=== PATIENT | male | born 1945 | race Caucasian/White ===

== ENCOUNTER → 2020-09-22 09:15 | Outpatient (CLI) | payer OTHER, SELFPAY ==
--- NOTE | 2020-09-22 | DI.MRI.S_ITS ---
PROCEDURE: MR HEAD/BRAIN WO CON INDICATIONS: Unsteadiness on feet TECHNIQUE: Non-contrast axial T1 spin echo, axial T2 fast spin echo, sagittal and axial FLAIR, coronal T2 fast spin echo, axial gradient echo, axial diffusion and ADC through the brain. COMPARISON: None. FINDINGS: Image quality: Excellent. CSF spaces: Ventricles appear symmetric in size and shape. Basal cisterns are patent. No extra-axial fluid collections. Brain: No intracranial bleeds or mass effects. There is cerebral volume loss for age. There are periventricular and deep white matter chronic small vessel ischemic changes. Brainstem appears normal. Diffusion-weighted images show no acute ischemic insults. No chronic ischemic insults. Punctate foci of susceptibility artifact noted in the cerebral hemispheres bilaterally and the right cerebellar hemisphere. Normal intravascular flow voids are present. Skull and face: Calvarial bone marrow is normal in signal. Orbits are normal. Sinuses: Sinuses and mastoids are clear. IMPRESSION: 1. No acute intracranial disease process. 2. No abnormal intracranial mass or mass effect. Nely a 3. No areas of acute or chronic infarction. 3. Punctate foci of susceptibility artifact involving the cerebral hemispheres bilaterally in the right cerebellar hemisphere. Finding typically represents remote petechial hemorrhage related to either amyloid angiopathy or hypertension, however finding is nonspecific and other etiologies underlying vascular malformation or less likely neoplastic process could produce a similar appearance. Dictated by: Amy Olmos MD, PhD on 09/22/2020 at 11:35 Approved by: Amy Olmos MD, PhD on 09/22/2020 at 11:40
== END ==
PROVIDERS: PCP Physician Assistant Medical; Referring Provider Psychiatry & Neurology Neurology; Visit Provider Psychiatry & Neurology Neurology
DX: R26.81 Unsteadiness on feet (principal); R29.6 Repeated falls
CPT/HCPCS: 70551

== ENCOUNTER → 2021-09-15 08:06 | Outpatient (CLI) | payer OTHER, SELFPAY ==
[2021-09-15 18:46] LABS: Hemoglobin 12.3 g/dL (13.5-17.5); Mean Corpuscular HGB Conc 35.2 % (30-36); Mean Corpuscular Hemoglobin 35.4 PG (26-34); Mean Corpuscular Volume 100.6 fL (80-100); Platelet Count 168 X10^3/uL (150-400); Red Blood Cell Count 3.48 X10^6/uL (4.5-5.9); White Blood Cell Count 6.5 X10^3/uL (4.5-11.0)
[2021-09-15 19:02] LABS: BUN Creatinine Ratio 25.8 (6-22); Blood Urea Nitrogen 23 mg/dL (9-20); Calcium 9.2 mg/dL (8.4-10.2); Carbon Dioxide 31 mmol/L (22-32); Chloride 102 mmol/L (98-107); Estimated Glomerular Filt Rate > 60 mL/min (>60); Glucose 97 mg/dL (80-110); HEMOLYSIS < 15 (0-50); Potassium 4.6 mmol/L (3.4-5.1); Sodium 137 mmol/L (137-145)
[2021-09-15 19:09] LABS: NT-proBNP (BNP-Adult 18+) 2530 pg/mL (<450)
[2021-09-15 19:13] LABS: Neutrophils Absolute Manual 3640 /uL (3000-5900); Total Cells Counted 100
[2021-09-15 19:14] LABS: Acanthocytes 1+; Anisocytosis 1+; Macrocytosis 1+; Poikilocytosis 3+; Schistocytes 2+; Tear Drop Cells 1+
[2021-09-15 19:22] LABS: Erythrocyte Sedimentation Rate 9 MM/HR (0-15)
== END ==
PROVIDERS: PCP Family Medicine; Visit Provider Family Medicine
DX: D64.9 Anemia, unspecified (principal); D69.6 Thrombocytopenia, unspecified; I48.0 Paroxysmal atrial fibrillation; I50.42 Chronic combined systolic (congestive) and diastolic (congestive) heart failure; R05.3 Chronic cough; Z86.79 Personal history of other diseases of the circulatory system; Z95.2 Presence of prosthetic heart valve
CPT/HCPCS: 80048; 83880; 85025; 85651

== ENCOUNTER → 2022-08-30 09:35 | Outpatient (CLI) | payer MEDICARE, SELFPAY ==
[2022-08-30 20:34] LABS: Alanine Aminotransferase 28 IU/L (<50); Albumin 4.5 g/dL (3.5-5.0); Albumin Globulin Ratio 1.3 (1.0-2.8); Alkaline Phosphatase 106 U/L (38-126); Aspartate Aminotransferase 75 IU/L (17-59); BUN Creatinine Ratio 24.5 (6-22); Bilirubin Total 1.5 mg/dL (0.2-1.3); Blood Urea Nitrogen 23 mg/dL (9-20); Calcium 9.3 mg/dL (8.4-10.2); Carbon Dioxide 29 mmol/L (22-32); Chloride 104 mmol/L (98-107); Cholesterol 161 mg/dL (140-199); Estimated Glomerular Filt Rate > 60 mL/min (>60); Globulin 3.4 g/dL (1.7-4.1); Glucose 95 mg/dL (80-110); HDL Cholesterol 82 mg/dL (40-60); HEMOLYSIS 19 (0-50); LDL Cholesterol Calculated 62 mg/dL (<100); Potassium 4.8 mmol/L (3.4-5.1); Sodium 138 mmol/L (137-145); Total Protein 7.9 g/dL (6.3-8.2); Triglycerides 87 mg/dL (35-150)
[2022-08-30 20:36] LABS: Basophils Absolute Auto 100 /uL (0-100); Basophils Percent Auto 1.1 % (0-2); Eosinophils Absolute Auto 200 /uL (0-450); Eosinophils Percent Auto 2.7 % (2-4); Hematocrit 36.1 % (41-53); Hemoglobin 12.2 g/dL (13.5-17.5); Lymphocytes Absolute Auto 1600 /uL (1100-4500); Lymphocytes Percent Auto 23.3 % (25-40); Mean Corpuscular HGB Conc 33.9 % (30-36); Mean Corpuscular Hemoglobin 33.9 PG (26-34); Monocytes Absolute Auto 1200 /uL (0-900); Monocytes Percent Auto 16.8 % (3-14); Neutrophils Absolute Auto 3900 /uL (1500-7000); Neutrophils Percent Auto 56.1 % (50-75); Platelet Count 185 X10^3/uL (150-400); Red Blood Cell Count 3.61 X10^6/uL (4.5-5.9); Red Cell Distribution Width 16.5 % (11.6-14.8); White Blood Cell Count 6.9 X10^3/uL (4.5-11.0)
[2022-08-30 20:37] LABS: Add Manual Diff / Slide Review SLIDE REVIEW
[2022-08-30 20:40] LABS: NT-proBNP (BNP-Adult 18+) 2380 pg/mL (<450)
[2022-08-30 20:47] LABS: Schistocytes 2+
[2022-08-30 20:48] LABS: Acanthocytes 1+; Macrocytosis 1+; Poikilocytosis 1+
== END ==
PROVIDERS: PCP Family Medicine; Visit Provider Family Medicine
DX: D50.9 Iron deficiency anemia, unspecified (principal); D69.6 Thrombocytopenia, unspecified; D64.9 Anemia, unspecified; E03.9 Hypothyroidism, unspecified; E61.1 Iron deficiency; E78.2 Mixed hyperlipidemia; I25.10 Atherosclerotic heart disease of native coronary artery without angina pectoris; I10 Essential (primary) hypertension; F11.90 Opioid use, unspecified, uncomplicated; I48.0 Paroxysmal atrial fibrillation; I50.42 Chronic combined systolic (congestive) and diastolic (congestive) heart failure; I63.519 Cerebral infarction due to unspecified occlusion or stenosis of unspecified middle cerebral artery; Z87.19 Personal history of other diseases of the digestive system
CPT/HCPCS: 80053; 80061; 83880; 84443; 85025

== ENCOUNTER → 2022-10-23 10:56 | Outpatient (CLI) | payer MEDICARE, OTHER, SELFPAY ==
[2022-10-23 20:02] LABS: Reticulocyte Count, Percent 2.4 % (0.9-2.6)
[2022-10-23 20:04] LABS: Basophils Absolute Auto 0 /uL (0-100); Basophils Percent Auto 0.3 % (0-2); Eosinophils Absolute Auto 100 /uL (0-450); Eosinophils Percent Auto 2.1 % (2-4); Hematocrit 38.7 % (41-53); Hemoglobin 13.4 g/dL (13.5-17.5); Lymphocytes Absolute Auto 1300 /uL (1100-4500); Lymphocytes Percent Auto 21.3 % (25-40); Mean Corpuscular HGB Conc 34.7 % (30-36); Mean Corpuscular Hemoglobin 34.4 PG (26-34); Mean Corpuscular Volume 99.1 fL (80-100); Monocytes Absolute Auto 1100 /uL (0-900); Monocytes Percent Auto 18.8 % (3-14); Neutrophils Absolute Auto 3400 /uL (1500-7000); Neutrophils Percent Auto 57.5 % (50-75); Platelet Count 177 X10^3/uL (150-400); Red Cell Distribution Width 16.8 % (11.6-14.8)
[2022-10-23 20:05] LABS: Add Manual Diff / Slide Review SLIDE REVIEW
[2022-10-23 20:08] LABS: HEMOLYSIS < 15 (0-50); Iron 137 ug/dL (49-181)
[2022-10-23 20:11] LABS: Alanine Aminotransferase 29 IU/L (<50); Albumin 4.7 g/dL (3.5-5.0); Albumin Globulin Ratio 1.6 (1.0-2.8); Alkaline Phosphatase 155 U/L (38-126); Aspartate Aminotransferase 47 IU/L (17-59); BUN Creatinine Ratio 26.9 (6-22); Bilirubin Total 1.2 mg/dL (0.2-1.3); Bilirubin Unconjugated 0.9 mg/dL (0.0-1.1); Blood Urea Nitrogen 25 mg/dL (9-20); Calcium 9.4 mg/dL (8.4-10.2); Carbon Dioxide 30 mmol/L (22-32); Chloride 101 mmol/L (98-107); Estimated Glomerular Filt Rate > 60 mL/min (>60); Globulin 2.9 g/dL (1.7-4.1); Glucose 63 mg/dL (80-110); HEMOLYSIS < 15 (0-50); Potassium 4.7 mmol/L (3.4-5.1); Sodium 137 mmol/L (137-145); Total Protein 7.6 g/dL (6.3-8.2)
[2022-10-23 20:14] LABS: NT-proBNP (BNP-Adult 18+) 3370 pg/mL (<450)
[2022-10-23 20:22] LABS: Percent Iron Saturation 36 % (20-50); Total Iron Binding Capacity 382 ug/dL (261-462); Transferrin 287 mg/dL (206-381)
[2022-10-23 20:24] LABS: Erythrocyte Sedimentation Rate 5 MM/HR (0-15)
[2022-10-23 20:52] LABS: Hepatitis B Surface Antigen NEGATIVE s/c (NEGATIVE)
[2022-10-23 20:53] LABS: Anisocytosis 2+; Poikilocytosis 1+; Schistocytes 1+
[2022-10-23 20:54] LABS: Vitamin B12 950 pg/mL (239-931)
[2022-10-23 21:17] LABS: Hep C Virus Ab w/Reflex Quant NEGATIVE s/c (NEGATIVE)
[2022-10-23 21:18] LABS: HIV 1 & 2 Ab/Ag 4th Gen Combo NEGATIVE (NEGATIVE)
[2022-10-29 14:09] LABS: Percent Free Testosterone 3.02 % (1.50-4.20); Testosterone Total 258.4 ng/dL (264.0-916.0)
== END ==
PROVIDERS: PCP Family Medicine; Visit Provider Family Medicine
DX: M54.50 Low back pain, unspecified (principal); I50.42 Chronic combined systolic (congestive) and diastolic (congestive) heart failure; D50.9 Iron deficiency anemia, unspecified; D64.9 Anemia, unspecified; I10 Essential (primary) hypertension; I25.10 Atherosclerotic heart disease of native coronary artery without angina pectoris; I63.519 Cerebral infarction due to unspecified occlusion or stenosis of unspecified middle cerebral artery; R74.8 Abnormal levels of other serum enzymes; E29.1 Testicular hypofunction; E78.2 Mixed hyperlipidemia; F11.90 Opioid use, unspecified, uncomplicated; G89.29 Other chronic pain; I48.0 Paroxysmal atrial fibrillation; Z79.890 Hormone replacement therapy
CPT/HCPCS: 80053; 80076; 82607; 83540; 83550; 83880; 84402; 84403; 85025; 85045; 85651; 86803; 87340; 87389

== ENCOUNTER → 2022-11-03 09:19 | Outpatient (CLI) | payer MEDICARE, OTHER, SELFPAY ==
--- NOTE | 2022-11-03 09:22 | DI.ECHO.S_ITS ---
[place] +---------+ [facility] +---------+ : : [address] [place] : : : : [id number] : : : : Phone: [phone] +---------+ Echocardiogram Report + + :Name: MELODIE GOOD Study Date: 11/03/2022 Height: 72 in : :[facility] ReadingLocation: Weight: 224 lb : : Gender: Male BSA: 2.2 m2 : :: 1945 Age: 77 yrs BP: 118/68 mmHg: :Reason For Study: Congestive Heart Failure : :Ordering Physician: ARNOLDO, : :DENNIS Performed By: Ruthy Waldron : :Referring: DENNIS MCLAUGHLIN : + + Interpretation Summary The ejection fraction is estimated to be 30-35%. There is severe global hypokinesis of the left ventricle. Right ventricular systolic function is at the lower limits of normal. The right ventricular systolic pressure is estimated to be at least 29 mmHg based on an estimated right atrial pressure of 3 mm Hg. The left atrium is mildly dilated. The right atrium is moderately dilated. There is moderate aortic stenosis. There is moderate aortic regurgitation. No prior studies available for comparison. Procedure: A two-dimensional transthoracic echocardiogram with color flow and Doppler was performed. The study quality was technically difficult. There is no prior echocardiogram noted for this patient. A contrast injection of Definity was performed to improve assessment of LV function. The patient has a paced rhythm. Left Ventricle: The left ventricle is moderately dilated. The ejection fraction is estimated to be 30-35%. There is severe global hypokinesis of the left ventricle. Diastolic function could not be accurately assessed due to paced rhythm. Right Ventricle: The right ventricle is mildly dilated. Right ventricular systolic function is at the lower limits of normal. Atria: The left atrium is mildly dilated. The right atrium is moderately dilated. There is no Doppler evidence for an interatrial shunt. Mitral Valve: The mitral valve leaflets are mildly calcified. There is mild to moderate mitral annular calcification. There is mild mitral stenosis. The mitral valve mean gradient is 3 mmHg. There is mild mitral regurgitation. Aortic Valve: There is a mechanical aortic valve. The peak aortic velocity is 3.39 m/sec. The aortic valve mean gradient is 27 mmHg. There is moderate aortic stenosis. There is moderate aortic regurgitation. Tricuspid Valve: The tricuspid valve is normal. There is no tricuspid stenosis. There is trace tricuspid regurgitation. The right ventricular systolic pressure is estimated to be at least 29 mmHg based on an estimated right atrial pressure of 3 mm Hg. Pulmonic Valve: The pulmonic valve leaflets are thin and pliable; valve motion is normal. There is no pulmonic valvular stenosis. There is no pulmonic valvular regurgitation. Great Vessels: The aortic root is not well visualized. The ascending aorta is normal in size. The pulmonary artery is normal size. The IVC is of normal diameter and collapses greater than 50% with a sniff. This suggests a low right atrial pressure of 3 mm Hg. Pericardium/ Pleura There is no pericardial effusion. There is no pleural effusion. MMode/2D Measurements & Calculations LVIDd: 6.2 cm LVOT diam: 2.4 cm LVIDs: 5.7 cm asc Aorta Diam: 2.8 cm FS: 8.1 % EPSS: 2.9 cm IVSd: 0.90 cm LVPWd: 1.3 cm LV ruvalcaba. diameter/BSA (cm/m^2): 2.8 LV sys. diameter/BSA (cm/m^2): 2.5 LA A2 area: 26.1 cm2 RA long axis: 6.6 cm LA A4 area: 26.3 cm2 RA area: 25.3 cm2 LA length (vol): 7.5 cm RA vol: 82.0 ml LA vol: 77.8 ml RA : 36.7 ml/m2 LA vol index: 34.8 ml/m2 RVD1 (basal): 4.4 cm LVLs ap4: 9.3 cm LVLd ap2: 9.7 cm TAPSE_phl: 1.6 cm LVLs ap2: 9.3 cm Doppler Measurements & Calculations Ao V2 max: 333.8 cm/sec LVOT Max Juan Miguel: 107.8 cm/sec Ao V2 mean: 236.4 cm/sec LV V1 max P.7 mmHg Ao max P.0 mmHg LV V1 VTI: 26.6 cm Ao mean P.8 mmHg FRANCISCO(I,D): 1.5 cm2 Ao V2 VTI: 78.4 cm FRANCISCO(V,D): 1.5 cm2 sev ratio: 0.34 FRANICSCO indexed to BSA (cm^2/m^2): 0.69 MV E max juan miguel: 110.0 cm/sec TR max juan miguel: 254.0 cm/sec MV A max juan miguel: 83.7 cm/sec TR max P.8 mmHg MV E/A: 1.3 PA V2 max: 80.4 cm/sec MV dec time: 0.23 sec PA V2 mean: 57.6 cm/sec MVA(VTI): 2.8 cm2 PA mean P.0 mmHg PA pr(Accel): 17.3 mmHg MV V2 mean: 78.9 cm/sec SV(LVOT): 120.2 ml MV mean P.0 mmHg MV V2 VTI: 43.7 cm AV VR_phl: 0.32 FRANCISCO(VTI)/BSA_phl: 0.68 Reading Physician:MCKAY
== END ==
PROVIDERS: PCP Family Medicine; Referring Provider Family Medicine; Visit Provider Family Medicine
DX: I08.0 Rheumatic disorders of both mitral and aortic valves (principal); I77.819 Aortic ectasia, unspecified site; I50.42 Chronic combined systolic (congestive) and diastolic (congestive) heart failure; I25.10 Atherosclerotic heart disease of native coronary artery without angina pectoris; I48.0 Paroxysmal atrial fibrillation
CPT/HCPCS: C8929; Q9957

== ENCOUNTER → 2022-11-29 11:06 | Outpatient (CLI) | payer MEDICARE, OTHER, SELFPAY ==
[2022-11-29 20:30] LABS: BUN Creatinine Ratio 25.5 (6-22); Blood Urea Nitrogen 25 mg/dL (9-20); Calcium 9.6 mg/dL (8.4-10.2); Carbon Dioxide 30 mmol/L (22-32); Chloride 99 mmol/L (98-107); Estimated Glomerular Filt Rate > 60 mL/min (>60); Glucose 81 mg/dL (80-110); HEMOLYSIS < 15 (0-50); Magnesium 2.2 mg/dL (1.6-2.3); Potassium 4.6 mmol/L (3.4-5.1); Sodium 137 mmol/L (137-145)
[2022-11-29 20:38] LABS: NT-proBNP (BNP-Adult 18+) 3630 pg/mL (<450)
== END ==
PROVIDERS: PCP Family Medicine; Visit Provider Specialist
DX: I50.42 Chronic combined systolic (congestive) and diastolic (congestive) heart failure (principal)
CPT/HCPCS: 80048; 83735; 83880

== ENCOUNTER → 2023-01-08 11:27 | Outpatient (CLI) | payer MEDICARE, OTHER, SELFPAY ==
[2023-01-08 19:45] LABS: Blood Urea Nitrogen 27 mg/dL (9-20); Calcium 9.6 mg/dL (8.4-10.2); Carbon Dioxide 30 mmol/L (22-32); Chloride 103 mmol/L (98-107); Estimated Glomerular Filt Rate > 60 mL/min (>60); Glucose 97 mg/dL (80-110); HEMOLYSIS < 15 (0-50); Magnesium 2.1 mg/dL (1.6-2.3); Potassium 4.5 mmol/L (3.4-5.1); Sodium 138 mmol/L (137-145)
== END ==
PROVIDERS: PCP Family Medicine; Visit Provider Specialist
DX: I50.42 Chronic combined systolic (congestive) and diastolic (congestive) heart failure (principal)
CPT/HCPCS: 80048; 83735

== ENCOUNTER → 2023-04-25 09:12 | Outpatient (CLI) | payer MEDICARE, OTHER, SELFPAY ==
[2023-04-25 19:32] LABS: Blood Urea Nitrogen 24 mg/dL (9-20); Calcium 9.2 mg/dL (8.4-10.2); Carbon Dioxide 28 mmol/L (22-32); Chloride 102 mmol/L (98-107); Cholesterol 170 mg/dL (140-199); Estimated Glomerular Filt Rate > 60 mL/min (>60); Glucose 101 mg/dL (80-110); HDL Cholesterol 85 mg/dL (40-60); HEMOLYSIS < 15 (0-50); LDL Cholesterol Calculated 70 mg/dL (<100); Potassium 4.5 mmol/L (3.4-5.1); Sodium 139 mmol/L (137-145); Triglycerides 76 mg/dL (35-150)
[2023-04-25 19:42] LABS: Add Manual Diff / Slide Review NO; Basophils Absolute Auto 100 /uL (0-100); Eosinophils Absolute Auto 200 /uL (0-450); Eosinophils Percent Auto 3.2 % (2-4); Hematocrit 34.8 % (41-53); Hemoglobin 12.2 g/dL (13.5-17.5); Lymphocytes Absolute Auto 1300 /uL (1100-4500); Lymphocytes Percent Auto 25.9 % (25-40); Mean Corpuscular Hemoglobin 35.1 PG (26-34); Mean Corpuscular Volume 100.2 fL (80-100); Monocytes Absolute Auto 900 /uL (0-900); Monocytes Percent Auto 17.5 % (3-14); Neutrophils Absolute Auto 2600 /uL (1500-7000); Neutrophils Percent Auto 52.4 % (50-75); Platelet Count 156 X10^3/uL (150-400); Red Blood Cell Count 3.47 X10^6/uL (4.5-5.9); Red Cell Distribution Width 13.9 % (11.6-14.8)
[2023-04-25 19:56] LABS: TSH w/ Reflex to FT4 1.64 uIU/mL (0.47-4.68)
[2023-05-03 09:22] LABS: Testosterone Free 9.53 ng/dL (5.00-21.00); Testosterone Total 288.7 ng/dL (264.0-916.0)
== END ==
PROVIDERS: PCP Family Medicine; Visit Provider Family Medicine
DX: I63.519 Cerebral infarction due to unspecified occlusion or stenosis of unspecified middle cerebral artery (principal); Z79.890 Hormone replacement therapy; I10 Essential (primary) hypertension; F11.90 Opioid use, unspecified, uncomplicated; I25.10 Atherosclerotic heart disease of native coronary artery without angina pectoris; E78.2 Mixed hyperlipidemia; D64.9 Anemia, unspecified
CPT/HCPCS: 80048; 80061; 84402; 84403; 84443; 85025

== ENCOUNTER → 2023-06-05 11:25 | Outpatient (CLI) | payer MEDICARE, OTHER, SELFPAY ==
[2023-06-05 19:24] LABS: HEMOLYSIS < 15 (0-50); Iron 139 ug/dL (49-181)
[2023-06-05 19:35] LABS: Percent Iron Saturation 46 % (20-50); Total Iron Binding Capacity 302 ug/dL (261-462); Transferrin 255 mg/dL (206-381)
[2023-06-05 20:15] LABS: Vitamin B12 > 1000 pg/mL (239-931)
[2023-06-08 12:49] LABS: Fecal Immunochemical Test Negative (Negative)
== END ==
PROVIDERS: PCP Family Medicine; Visit Provider Family Medicine
DX: D64.9 Anemia, unspecified (principal)
CPT/HCPCS: 82274; 82607; 83540; 83550

== ENCOUNTER → 2023-06-13 12:00 | Outpatient (CLI) | payer MEDICARE, OTHER, SELFPAY ==
--- NOTE | 2023-06-13 12:01 | DI.ECHO.S_ITS ---
[facility] +---------+ [facility] +---------+ : : [address] [place] : : : : [id number] : : : : Phone: [phone] +---------+ Echocardiogram Report + + :Name: MELODIE GOOD Study Date: 06/13/2023 Height: 72 in : :[facility] ReadingLocation: Weight: 218 lb : : Gender: Male BSA: 2.2 m2 : :: 1945 Age: 77 yrs BP: 134/86 mmHg: :Reason For Study: COGESTIVE HEART FAILURE : :Ordering Physician: ARNOLDO, : :DENNIS Performed By: Amy So : :Referring: DENNIS MCLAUGHLIN : + + Interpretation Summary The left ventricle is moderately dilated. Left ventricular ejection fraction is estimated to be 41%. Right ventricular systolic function is at the lower limits of normal. The right ventricle is mild to moderately dilated. The left atrium is severely dilated. The right atrium is severely dilated. There is a mechanical aortic valve. The peak aortic velocity is 3.9 m/sec. The peak aortic velocity on the previous exam was 3.39 m/sec. There is mild to moderate aortic regurgitation. The ascending aorta is mildly enlarged. Procedure: A two-dimensional transthoracic echocardiogram with color flow and Doppler was performed. The study quality was technically difficult. Comparison is made with the echocardiogram of 11/03/2022. A contrast injection of Definity was performed to improve assessment of LV function. The patient has a paced rhythm. The heart rate ranged between 60-63 bpm during the study. Left Ventricle: The left ventricle is moderately dilated. There is mild concentric left ventricular hypertrophy. Left ventricular ejection fraction is estimated to be 41%. Right Ventricle: The right ventricle is mild to moderately dilated. Right ventricular systolic function is at the lower limits of normal. Atria: The left atrium is severely dilated. There is a catheter/pacemaker lead seen in the right atrium. The right atrium is severely dilated. There is no Doppler evidence for an interatrial shunt. Mitral Valve: The mitral valve leaflets are mildly calcified. There is mild to moderate mitral annular calcification. There is mild mitral regurgitation. Aortic Valve: There is a mechanical aortic valve. The peak aortic velocity is 3.9 m/sec. The aortic valve mean gradient is 37 mmHg. The peak aortic velocity on the previous exam was 3.39 m/sec. There is mild to moderate aortic regurgitation. Tricuspid Valve: The tricuspid valve is not well visualized, but is grossly normal. There is mild tricuspid regurgitation. Pulmonary artery pressures cannot be estimated because of the lack of a measurable TR jet velocity. Pulmonic Valve: The pulmonic valve is not well visualized. There is no pulmonic valvular regurgitation. Great Vessels: The aortic root is not well visualized. The ascending aorta is mildly enlarged. The IVC is of normal diameter and collapses greater than 50% with a sniff. This suggests a low right atrial pressure of 3 mm Hg. Pericardium/ Pleura There is no pericardial effusion. There is no pleural effusion. MMode/2D Measurements & Calculations LVIDd: 6.4 cm LVOT diam: 2.2 cm LVIDs: 4.4 cm asc Aorta Diam: 4.0 cm FS: 30.7 % EPSS: 1.4 cm IVSd: 1.3 cm LVPWd: 1.1 cm LV ruvalcaba. diameter/BSA (cm/m^2): 2.9 LV sys. diameter/BSA (cm/m^2): 2.0 LA A2 area: 37.4 cm2 RA long axis: 7.2 cm LA A4 area: 30.2 cm2 RA area: 35.0 cm2 LA length (vol): 7.2 cm RA vol: 144.4 ml LA vol: 132.4 ml RA : 65.3 ml/m2 LA vol index: 59.9 ml/m2 IVC diam: 1.9 cm RVD1 (basal): 4.8 cm TAPSE: 1.7 cm Doppler Measurements & Calculations Ao V2 max: 389.5 cm/sec LVOT Max Juan Miguel: 123.6 cm/sec Ao V2 mean: 283.5 cm/sec LV V1 max P.1 mmHg Ao max P.7 mmHg LV V1 VTI: 31.3 cm Ao mean P.0 mmHg FRANCISCO(I,D): 1.2 cm2 Ao V2 VTI: 93.1 cm FRANCISCO(V,D): 1.2 cm2 sev ratio: 0.34 FRANCISCO indexed to BSA (cm^2/m^2): 0.55 MV E max juan miguel: 113.6 cm/sec PA V2 max: 84.8 cm/sec MV A max juan miguel: 122.2 cm/sec PA V2 mean: 58.1 cm/sec MV E/A: 0.93 PA mean P.5 mmHg Med Peak E' Juan Miguel: 4.2 cm/sec PA pr(Accel): 44.7 mmHg E/E' med: 26.8 Lat Peak E' Juan Miguel: 7.2 cm/sec E/E' lat: 15.8 E/e' average: 21.3 MV dec time: 0.33 sec MVA(VTI): 2.1 cm2 MV V2 mean: 79.3 cm/sec SV(LVOT): 113.7 ml MV mean P.0 mmHg MV V2 VTI: 53.5 cm Reading Physician:12:38 PM
== END ==
PROVIDERS: PCP Family Medicine; Referring Provider Family Medicine; Visit Provider Family Medicine
DX: I08.3 Combined rheumatic disorders of mitral, aortic and tricuspid valves (principal); I77.89 Other specified disorders of arteries and arterioles; I50.42 Chronic combined systolic (congestive) and diastolic (congestive) heart failure; Z98.890 Other specified postprocedural states
CPT/HCPCS: C8929; Q9957

== ENCOUNTER 2023-08-10 00:43 | Emergency (ER) | payer MEDICARE, OTHER, SELFPAY ==
[2023-08-10] VITALS (23 sets, daily range): BP systolic 111–158; BP diastolic 54–66; PULSE 66–79; RESP 11–25; TEMP 36.8; O2SAT 91–96
--- NOTE | 2023-08-10 00:55 | ED.FALL ---
HPI - Fall <Sandra Mccoy MD - Last Filed: 08/13/23 18:04> General Chief Complaint: Fall Stated Complaint: GLF Time Seen by Provider: 08/10/23 00:55 Source: patient and EMS Mode of arrival: EMS History of Present Illness HPI Narrative: 77-year-old gentleman lives on [facility] was getting into his car and had a mechanical fall landing on his left side he was unable to get up and is having significant pain. He did not hit his head he is anticoagulated on warfarin for coronary artery disease and prior aortic valve repair, paroxysmal atrial fibrillation and pacemaker. Has a history of prior stroke with mild expressive aphasia, hypertension, hyperlipidemia. He has in no respiratory distress, able to speak in full sentences but describes severe pain in the left thorax and left upper abdomen. Brought in by medics/air lift from [facility]. He does not have any complaints of recent fevers, cough, chills, chest pain, palpitations, orthopnea or dyspnea. Related Data Home Medications Medication Instructions Recorded Confirmed acetaminophen 500 mg tablet 1,000 mg PO BID PRN 06/22/20 06/29/23 cholecalciferol (vitamin D3) 25 25 mcg PO DAILY 06/22/20 06/29/23 mcg (1,000 unit) tablet testosterone 50 mg/5 gram (1 %) 50 mg transdermal DAILY 06/22/20 06/29/23 transdermal gel ferrous gluconate 324 mg (37.5 mg 324 mg PO anemia 07/27/22 06/29/23 iron) tablet Previous Rx's Medication Instructions Recorded furosemide 40 mg tablet 40 mg PO DAILY #90 tabs 01/29/23 gabapentin 300 mg capsule 300 mg PO TID #270 caps 01/29/23 pantoprazole 40 mg tablet,delayed 40 mg PO BID #180 tabs 01/29/23 release sertraline 100 mg tablet 150 mg (1.5 x 100 mg) PO DAILY 01/29/23 #135 tabs trazodone 50 mg tablet 50 mg PO BEDTIME PRN insomnia #90 01/29/23 tabs carvedilol 3.125 mg tablet 3.125 mg PO BID #180 tabs 04/23/23 atorvastatin 80 mg tablet 80 mg PO DAILY #90 tabs 06/25/23 spironolactone 25 mg tablet 25 mg PO DAILY #90 tabs 06/25/23 warfarin 2.5 mg tablet 2.5 mg PO DAILY #90 tabs 06/25/23 bupropion HCl 150 mg 24 hr tablet, 150 mg PO QAM #90 tabs 06/29/23 extended release (Wellbutrin XL) oxycodone 5 mg tablet 5 mg PO DAILY PRN pain #28 tabs 07/31/23 albuterol sulfate 90 mcg/actuation 2 puff inhalation Q6H PRN 08/10/23 aerosol inhaler shortness of breath or wheezing #8.5 grams oxycodone 5 mg tablet 5 mg PO QID PRN pain #20 tabs 08/10/23 Allergies Allergy/AdvReac Type Severity Reaction Status Date / Time NSAIDS (Non-Steroidal AdvReac Severe ON COUMADIN Verified 07/18/23 10:20 Anti-Inflamma Review of Systems <Sandra Mccoy MD - Last Filed: 08/13/23 18:04> Review of Systems Narrative: Pertinent positive and negative findings as per HPI Patient History <Sandra Mccoy MD - Last Filed: 08/13/23 18:04> Medical History (Updated 08/10/23 @ 10:36 by Santo Herrera MD) Cough Surgical History (Updated 11/29/22 @ 07:39 by Po Stratton MD) History of endoscopic gastrointestinal surgery History of orthopedic surgery Status post Mohs surgery History of cataract extraction S/P AVR Social History Smoking Status: Former smoker Smoking Status: Former smoker alcohol intake frequency: holidays/special occasions only Substance Use Type: opiates Exam <Sandra Mccoy MD - Last Filed: 08/13/23 18:04> Initial Vital Signs Initial Vital Signs: Vital Signs Pulse Rate 68 08/10/23 00:46 Respiratory Rate 19 08/10/23 00:46 Pulse Oximetry 93 08/10/23 00:46 General: Older appearing gentleman, in obvious pain, slight expressive aphasia but able to speak in full sentences HEENT: Moist mucous membranes, normal sclera with reactive pupils, no midline cervical spine tenderness Respiratory: Lungs with splinting on the left side, no wheezing Cardiac: Regular rate and rhythm no murmurs no bruits Abdomen: Soft, tender in the left upper and left posterior upper abdominal area. Bruising over the left anterior iliac crest without tenderness into the left lower abdomen Skin: Warm and dry, skin tear over the left elbow Neurologic: Mild expressive aphasia secondary to prior stroke, moving all extremities Extremities: No bony abnormalities or specific trauma Psych: Cooperative, appropriate insight and affect <Santo Herrera MD - Last Filed: 08/10/23 13:14> Initial Vital Signs Initial Vital Signs: Vital Signs Pulse Rate 68 08/10/23 00:46 Respiratory Rate 19 08/10/23 00:46 Pulse Oximetry 93 08/10/23 00:46 Course <Sandra Mccoy MD - Last Filed: 08/13/23 18:04> Orders Ordered: Discontinued Medications Hydromorphone HCl (Hydromorphone 0.5 Mg Inj) 0.5 mg IV Q15MIN PRN PRN Reason: Pain, Last Admin: 08/10/23 01:23 Dose: 0.5 mg Documented By: RAFIQ Oxycodone HCl (Oxycodone Ir 5 Mg Tablet) 5 mg PO NOW ONE Stop: 08/10/23 10:34 Last Admin: 08/10/23 10:37 Dose: 5 mg Documented By: [facility] Vital Signs Vital signs: Vital Signs - 8 hr 08/10/23 05:30 08/10/23 05:30 08/10/23 06:00 Pulse Rate 74 75 Respiratory Rate 17 18 Blood Pressure 138/63 Pulse Oximetry 94 95 Oxygen Delivery Method Oxygen Flow Rate 08/10/23 06:00 08/10/23 06:19 08/10/23 06:19 Pulse Rate 76 Respiratory Rate 16 Blood Pressure 136/63 134/61 Pulse Oximetry 94 Oxygen Delivery Method Oxygen Flow Rate 08/10/23 06:30 08/10/23 06:30 08/10/23 07:00 Pulse Rate 70 Respiratory Rate 13 Blood Pressure 133/55 L 127/55 L Pulse Oximetry 96 Oxygen Delivery Method Oxygen Flow Rate 08/10/23 07:00 08/10/23 07:30 08/10/23 07:30 Pulse Rate 67 71 Respiratory Rate 19 11 L Blood Pressure 142/64 H Pulse Oximetry 96 96 Oxygen Delivery Method Nasal Cannula Nasal Cannula Oxygen Flow Rate 2 2 08/10/23 08:00 08/10/23 08:00 08/10/23 08:30 Pulse Rate 67 Respiratory Rate 20 Blood Pressure 122/60 113/56 L Pulse Oximetry 96 Oxygen Delivery Method Oxygen Flow Rate 08/10/23 08:30 08/10/23 09:00 08/10/23 09:00 Pulse Rate 66 66 Respiratory Rate 21 25 H Blood Pressure 111/54 L Pulse Oximetry 94 95 Oxygen Delivery Method Oxygen Flow Rate 08/10/23 09:24 08/10/23 10:35 08/10/23 10:36 Pulse Rate 74 Respiratory Rate Blood Pressure 140/66 Pulse Oximetry 94 92 Oxygen Delivery Method Room Air Oxygen Flow Rate 08/10/23 10:36 Pulse Rate Respiratory Rate Blood Pressure Pulse Oximetry 92 Oxygen Delivery Method Room Air Oxygen Flow Rate <Santo Herrera MD - Last Filed: 08/10/23 13:14> Orders Ordered: Discontinued Medications Hydromorphone HCl (Hydromorphone 0.5 Mg Inj) 0.5 mg IV Q15MIN PRN PRN Reason: Pain, Last Admin: 08/10/23 01:23 Dose: 0.5 mg Documented By: RAFIQ Oxycodone HCl (Oxycodone Ir 5 Mg Tablet) 5 mg PO NOW ONE Stop: 08/10/23 10:34 Last Admin: 08/10/23 10:37 Dose: 5 mg Documented By: [facility] Vital Signs Vital signs: Vital Signs - 8 hr 08/10/23 05:30 08/10/23 05:30 08/10/23 06:00 Pulse Rate 74 75 Respiratory Rate 17 18 Blood Pressure 138/63 Pulse Oximetry 94 95 Oxygen Delivery Method Oxygen Flow Rate 08/10/23 06:00 08/10/23 06:19 08/10/23 06:19 Pulse Rate 76 Respiratory Rate 16 Blood Pressure 136/63 134/61 Pulse Oximetry 94 Oxygen Delivery Method Oxygen Flow Rate 08/10/23 06:30 08/10/23 06:30 08/10/23 07:00 Pulse Rate 70 Respiratory Rate 13 Blood Pressure 133/55 L 127/55 L Pulse Oximetry 96 Oxygen Delivery Method Oxygen Flow Rate 08/10/23 07:00 08/10/23 07:30 08/10/23 07:30 Pulse Rate 67 71 Respiratory Rate 19 11 L Blood Pressure 142/64 H Pulse Oximetry 96 96 Oxygen Delivery Method Nasal Cannula Nasal Cannula Oxygen Flow Rate 2 2 08/10/23 08:00 08/10/23 08:00 08/10/23 08:30 Pulse Rate 67 Respiratory Rate 20 Blood Pressure 122/60 113/56 L Pulse Oximetry 96 Oxygen Delivery Method Oxygen Flow Rate 08/10/23 08:30 08/10/23 09:00 08/10/23 09:00 Pulse Rate 66 66 Respiratory Rate 21 25 H Blood Pressure 111/54 L Pulse Oximetry 94 95 Oxygen Delivery Method Oxygen Flow Rate 08/10/23 09:24 08/10/23 10:35 08/10/23 10:36 Pulse Rate 74 Respiratory Rate Blood Pressure 140/66 Pulse Oximetry 94 92 Oxygen Delivery Method Room Air Oxygen Flow Rate 08/10/23 10:36 Pulse Rate Respiratory Rate Blood Pressure Pulse Oximetry 92 Oxygen Delivery Method Room Air Oxygen Flow Rate MDM - Fall <Sandra Mccoy MD - Last Filed: 08/13/23 18:04> Lab Data 08/10/23 01:48 08/10/23 01:48 Labs: Lab Results 08/10/23 08/10/23 08/10/23 Range/Units 01:48 02:51 03:10 WBC 11.5 H (4.5-11.0) X10^3/uL RBC 3.14 L (4.5-5.9) X10^6/uL Hgb 11.0 L (13.5-17.5) g/dL Hct 31.5 L (41-53) % MCV 100.2 H (80-100) fL MCH 35.2 H (26-34) PG MCHC 35.1 (30-36) % RDW 13.8 (11.6-14.8) % Plt Count 160 (150-400) X10^3/uL Neut % (Auto) 81.3 H (50-75) % Lymph % (Auto) 9.1 L (25-40) % [place] % (Auto) 9.2 (3-14) % Eos % (Auto) 0.1 L (2-4) % Baso % (Auto) 0.3 (0-2) % Neut # (Auto) 9300 H (3424-6683) /uL Lymph # (Auto) 1000 L (5651-5702) /uL [place] # (Auto) 1100 H (0-900) /uL Eos # (Auto) 0 (0-450) /uL Baso # (Auto) 0 (0-100) /uL RBC Morphology See below Poikilocytosis 1+ H Macrocytosis 1+ H Schistocytes 1+ H PT 30.8 H (9.4-12.5) SECONDS INR 2.7 H (0.9-1.3) Sodium 133 L (137-145) mmol/L Potassium 4.3 (3.4-5.1) mmol/L Chloride 103 (98-107) mmol/L Carbon Dioxide 25 (22-32) mmol/L BUN 25 H (9-20) mg/dL Creatinine 0.83 (0.66-1.25) mg/dL Estimated GFR > 60 (>60) mL/min BUN/Creatinine Ratio 30.1 H (6-22) Glucose 117 H (80-110) mg/dL Calcium 8.8 (8.4-10.2) mg/dL Total Bilirubin 1.0 (0.2-1.3) mg/dL AST 40 (17-59) IU/L ALT 21 (<50) IU/L Alkaline Phosphatase 90 (38-126) U/L Troponin I 0.052 H (0.01-0.034) ng/mL Total Protein 6.6 (6.3-8.2) g/dL Albumin 4.2 (3.5-5.0) g/dL Globulin 2.4 (1.7-4.1) g/dL Albumin/Globulin Ratio 1.8 (1.0-2.8) Lipase 98 (23-300) U/L Urine Color Yellow Urine Appearance Clear Urine pH 5.0 (4.5-8.0) Ur Specific [place] 1.010 (1.000-1.035) Urine Protein Negative (Negative) Urine Glucose (UA) Negative (Negative) g/dL Urine Ketones Trace H (NEGATIVE) Urine Occult Blood Negative (Negative) Urine Nitrate Negative (Negative) Urine Bilirubin Negative (NEGATIVE) Urine Urobilinogen 0.2 (0.2) E.U./dL Ur Leukocyte Esterase Negative (NEGATIVE) Urine RBC 0-1/hpf (0-5/HPF) Urine WBC None seen (0-5/HPF) Ur Squamous Epith Cells 0-1 /hpf (0-5/HPF) Amorphous Sediment 1+ Urine Bacteria Few (2-10) H (None) Ur Culture Indicated? Cult not indicated Vol Urine Centrifuged 10ml (spun) Blood Type O Negative Antibody Screen Negative 08/10/23 Range/Units 08:00 WBC (4.5-11.0) X10^3/uL RBC (4.5-5.9) X10^6/uL Hgb (13.5-17.5) g/dL Hct (41-53) % MCV (80-100) fL MCH (26-34) PG MCHC (30-36) % RDW (11.6-14.8) % Plt Count (150-400) X10^3/uL Neut % (Auto) (50-75) % Lymph % (Auto) (25-40) % [place] % (Auto) (3-14) % Eos % (Auto) (2-4) % Baso % (Auto) (0-2) % Neut # (Auto) (1111-2307) /uL Lymph # (Auto) (8152-5905) /uL [place] # (Auto) (0-900) /uL Eos # (Auto) (0-450) /uL Baso # (Auto) (0-100) /uL RBC Morphology Poikilocytosis Macrocytosis Schistocytes PT (9.4-12.5) SECONDS INR (0.9-1.3) Sodium (137-145) mmol/L Potassium (3.4-5.1) mmol/L Chloride (98-107) mmol/L Carbon Dioxide (22-32) mmol/L BUN (9-20) mg/dL Creatinine (0.66-1.25) mg/dL Estimated GFR (>60) mL/min BUN/Creatinine Ratio (6-22) Glucose (80-110) mg/dL Calcium (8.4-10.2) mg/dL Total Bilirubin (0.2-1.3) mg/dL AST (17-59) IU/L ALT (<50) IU/L Alkaline Phosphatase (38-126) U/L Troponin I 0.053 H (0.01-0.034) ng/mL Total Protein (6.3-8.2) g/dL Albumin (3.5-5.0) g/dL Globulin (1.7-4.1) g/dL Albumin/Globulin Ratio (1.0-2.8) Lipase (23-300) U/L Urine Color Urine Appearance Urine pH (4.5-8.0) Ur Specific [place] (1.000-1.035) Urine Protein (Negative) Urine Glucose (UA) (Negative) g/dL Urine Ketones (NEGATIVE) Urine Occult Blood (Negative) Urine Nitrate (Negative) Urine Bilirubin (NEGATIVE) Urine Urobilinogen (0.2) E.U./dL Ur Leukocyte Esterase (NEGATIVE) Urine RBC (0-5/HPF) Urine WBC (0-5/HPF) Ur Squamous Epith Cells (0-5/HPF) Amorphous Sediment Urine Bacteria (None) Ur Culture Indicated? Vol Urine Centrifuged Blood Type Antibody Screen Imaging Data CT chest abdomen pelvis: Radiologist's Impression: PROCEDURE: CT CHEST ABD PEL W CON INDICATIONS: blunt trauma, ? left lower rib fx, splenic rupture TECHNIQUE: After the administration of intravenous contrast, 5 mm thick sections acquired from the lung apices to the symphysis. 2.5 mm thick coronal and sagittal reformats were acquired. Additional 7 mm thick coronal maximum intensity projection (MIP) reformats acquired through the lungs. Optional 10-minute delayed imaging may be performed from the kidneys to the bladder. For radiation dose reduction, the following was used: automated exposure control, adjustment of mA and/or kV according to patient size. COMPARISON: None. FINDINGS: Image quality: Diagnostic. CHEST: Lower Neck: No enlarged lymph nodes. Thyroid: No thyroid nodules which require sonographic evaluation. Axillae: No enlarged lymph nodes. Chest Wall: No subcutaneous gas. Cardiac pacemaker is seen with pulse generator in the right sternotomy wires are present. chest. Lungs and Pleura: No pulmonary contusions or lacerations. No acute airspace opacities. Mild subsegmental atelectasis in the lung bases. No pneumothorax or hemothorax. Mediastinum: No mediastinal hematomas. Heart size is enlarged. No pericardial effusion. Prominent aortic valve calcifications. Three-vessel coronary artery calcifications. Thoracic aorta and pulmonary arteries demonstrate normal size and enhancement. No mediastinal or hilar adenopathy. Esophagus is normal in caliber. No hiatal hernia. ABDOMEN: Liver: No lacerations. Gallbladder: Cholelithiasis without signs of acute cholecystitis. Biliary ducts: No biliary dilation. Pancreas: Homogenous enhancement. Spleen: Spleen is absent. Adrenal Glands: Symmetric enhancement. Kidneys and Ureters: Symmetric enhancement. No hydronephrosis. No solid mass. No complex renal cystic lesion which requires follow up. 2 mm non-obstructing calculus at the inferior pole of the left kidney. Stomach and Bowel: Normal colonic caliber, without significant wall thickening. Peritoneum: No abnormal intraperitoneal fluid. No free air. Ventral Wall: Fat containing periumbilical hernia. Abdominal Nodes: No retroperitoneal or mesenteric adenopathy by size criteria. Vessels: Aorta and inferior vena cava are normal in size. Aortic atherosclerotic calcifications. PELVIS: Pelvic Organs: Unremarkable. Bladder: Normal thickness. Pelvic Nodes: No enlarged lymph nodes. Miscellaneous: No inguinal hernias are seen. Bones: Minimally displaced fractures of the lateral left 5th through 9th ribs. Old healed left 10th and posterior 5th rib fractures. Healed right lateral lower rib fractures. Pelvic ring and hip joints appear intact. IMPRESSION: 1. Minimally displaced acute left 5th through 9th rib fractures. No pneumothorax or hemothorax. 2. Spleen is absent. No CT signs of acute traumatic solid organ injury. 3. Cardiomegaly. Moderate to severe coronary artery calcifications. Approved by: Jaciel Weller M.D. on 08/10/2023 at 2:10 MDM Narrative Medical decision making narrative: CC: Mechanical fall landing on left side on warfarin Complicating co-morbidities: Coronary artery disease, paroxysmal atrial fibrillation, aortic valve repair, hypertension, hyperlipidemia, prior stroke Data collected from: patient Medical records reviewed: Family practice notes from June 28 of this year are reviewed Differential considered: All sequelae of blunt trauma to the thorax and abdomen Exam documented above, pertinent findings include: In obvious pain but able to speak in full sentences, minor bruising left mid axillary line, fairly moderate bruise over the left anterior iliac spine. Tender per his description along the entire left thorax however with direct palpation not as tender which causes me to worry that he may have internal bleeding or splenic injury. Lab Test results independently reviewed as above. Pertinent findings: CBC shows a white count at 11.5 with moderate left shift at 81.3%. H&H is slightly low at 11.0 and 31.5 with an MCV over 100. Chemistries are reassuring Troponin is elevated at 0.05 to Independently reviewed EKG: Sinus rhythm at a rate of 79 Criteria for LVH, Long QT at 575 milliseconds Nonspecific intraventricular delay INR is therapeutic at 2.7 Imaging studies independently reviewed: CT of the chest abdomen and pelvis shows only Minimally displaced acute left 5th through 9th rib fractures without hemopneumothorax, no other injuries are appreciated Consultations: Treatments: Re-evaluations: Patient has pain from his rib fracture better controlled after a dose of Dilaudid however it certainly makes his expressive aphasia a bit more difficult to interpret. Discussed the elevated troponin with him. He notes that he has had 3 aortic valve replacements and over the last period of time(with his expressive aphasia I am unable to tell if that is years hours or days) he states that he has had more exertional dyspnea. He says he has not appointment with his cotton ball machine tender on Sunday. Discussion: <Santo Herrera MD - Last Filed: 08/10/23 13:14> Lab Data Labs: Lab Results 08/10/23 08/10/23 08/10/23 Range/Units 01:48 02:51 03:10 WBC 11.5 H (4.5-11.0) X10^3/uL RBC 3.14 L (4.5-5.9) X10^6/uL Hgb 11.0 L (13.5-17.5) g/dL Hct 31.5 L (41-53) % MCV 100.2 H (80-100) fL MCH 35.2 H (26-34) PG MCHC 35.1 (30-36) % RDW 13.8 (11.6-14.8) % Plt Count 160 (150-400) X10^3/uL Neut % (Auto) 81.3 H (50-75) % Lymph % (Auto) 9.1 L (25-40) % [place] % (Auto) 9.2 (3-14) % Eos % (Auto) 0.1 L (2-4) % Baso % (Auto) 0.3 (0-2) % Neut # (Auto) 9300 H (0979-5901) /uL Lymph # (Auto) 1000 L (1935-6553) /uL [place] # (Auto) 1100 H (0-900) /uL Eos # (Auto) 0 (0-450) /uL Baso # (Auto) 0 (0-100) /uL RBC Morphology See below Poikilocytosis 1+ H Macrocytosis 1+ H Schistocytes 1+ H PT 30.8 H (9.4-12.5) SECONDS INR 2.7 H (0.9-1.3) Sodium 133 L (137-145) mmol/L Potassium 4.3 (3.4-5.1) mmol/L Chloride 103 (98-107) mmol/L Carbon Dioxide 25 (22-32) mmol/L BUN 25 H (9-20) mg/dL Creatinine 0.83 (0.66-1.25) mg/dL Estimated GFR > 60 (>60) mL/min BUN/Creatinine Ratio 30.1 H (6-22) Glucose 117 H (80-110) mg/dL Calcium 8.8 (8.4-10.2) mg/dL Total Bilirubin 1.0 (0.2-1.3) mg/dL AST 40 (17-59) IU/L ALT 21 (<50) IU/L Alkaline Phosphatase 90 (38-126) U/L Troponin I 0.052 H (0.01-0.034) ng/mL Total Protein 6.6 (6.3-8.2) g/dL Albumin 4.2 (3.5-5.0) g/dL Globulin 2.4 (1.7-4.1) g/dL Albumin/Globulin Ratio 1.8 (1.0-2.8) Lipase 98 (23-300) U/L Urine Color Yellow Urine Appearance Clear Urine pH 5.0 (4.5-8.0) Ur Specific [place] 1.010 (1.000-1.035) Urine Protein Negative (Negative) Urine Glucose (UA) Negative (Negative) g/dL Urine Ketones Trace H (NEGATIVE) Urine Occult Blood Negative (Negative) Urine Nitrate Negative (Negative) Urine Bilirubin Negative (NEGATIVE) Urine Urobilinogen 0.2 (0.2) E.U./dL Ur Leukocyte Esterase Negative (NEGATIVE) Urine RBC 0-1/hpf (0-5/HPF) Urine WBC None seen (0-5/HPF) Ur Squamous Epith Cells 0-1 /hpf (0-5/HPF) Amorphous Sediment 1+ Urine Bacteria Few (2-10) H (None) Ur Culture Indicated? Cult not indicated Vol Urine Centrifuged 10ml (spun) Blood Type O Negative Antibody Screen Negative 08/10/23 Range/Units 08:00 WBC (4.5-11.0) X10^3/uL RBC (4.5-5.9) X10^6/uL Hgb (13.5-17.5) g/dL Hct (41-53) % MCV (80-100) fL MCH (26-34) PG MCHC (30-36) % RDW (11.6-14.8) % Plt Count (150-400) X10^3/uL Neut % (Auto) (50-75) % Lymph % (Auto) (25-40) % [place] % (Auto) (3-14) % Eos % (Auto) (2-4) % Baso % (Auto) (0-2) % Neut # (Auto) (0167-2911) /uL Lymph # (Auto) (9157-8831) /uL [place] # (Auto) (0-900) /uL Eos # (Auto) (0-450) /uL Baso # (Auto) (0-100) /uL RBC Morphology Poikilocytosis Macrocytosis Schistocytes PT (9.4-12.5) SECONDS INR (0.9-1.3) Sodium (137-145) mmol/L Potassium (3.4-5.1) mmol/L Chloride (98-107) mmol/L Carbon Dioxide (22-32) mmol/L BUN (9-20) mg/dL Creatinine (0.66-1.25) mg/dL Estimated GFR (>60) mL/min BUN/Creatinine Ratio (6-22) Glucose (80-110) mg/dL Calcium (8.4-10.2) mg/dL Total Bilirubin (0.2-1.3) mg/dL AST (17-59) IU/L ALT (<50) IU/L Alkaline Phosphatase (38-126) U/L Troponin I 0.053 H (0.01-0.034) ng/mL Total Protein (6.3-8.2) g/dL Albumin (3.5-5.0) g/dL Globulin (1.7-4.1) g/dL Albumin/Globulin Ratio (1.0-2.8) Lipase (23-300) U/L Urine Color Urine Appearance Urine pH (4.5-8.0) Ur Specific [place] (1.000-1.035) Urine Protein (Negative) Urine Glucose (UA) (Negative) g/dL Urine Ketones (NEGATIVE) Urine Occult Blood (Negative) Urine Nitrate (Negative) Urine Bilirubin (NEGATIVE) Urine Urobilinogen (0.2) E.U./dL Ur Leukocyte Esterase (NEGATIVE) Urine RBC (0-5/HPF) Urine WBC (0-5/HPF) Ur Squamous Epith Cells (0-5/HPF) Amorphous Sediment Urine Bacteria (None) Ur Culture Indicated? Vol Urine Centrifuged Blood Type Antibody Screen MDM Narrative Medical decision making narrative: CC: Mechanical fall landing on left side on warfarin Complicating co-morbidities: Coronary artery disease, paroxysmal atrial fibrillation, aortic valve repair, hypertension, hyperlipidemia, prior stroke Data collected from: patient Medical records reviewed: [facility] practice notes from June 28 of this year are reviewed Differential considered: All sequelae of blunt trauma to the thorax and abdomen Exam documented above, pertinent findings include: In obvious pain but able to speak in full sentences, minor bruising left mid axillary line, fairly moderate bruise over the left anterior iliac spine. Tender per his description along the entire left thorax however with direct palpation not as tender which causes me to worry that he may have internal bleeding or splenic injury. Lab Test results independently reviewed as above. Pertinent findings: CBC shows a white count at 11.5 with moderate left shift at 81.3%. H&H is slightly low at 11.0 and 31.5 with an MCV over 100. Chemistries are reassuring Troponin is elevated at 0.05 to Independently reviewed EKG: Sinus rhythm at a rate of 79 Criteria for LVH, Long QT at 575 milliseconds Nonspecific intraventricular delay INR is therapeutic at 2.7 Imaging studies independently reviewed: CT of the chest abdomen and pelvis shows only Minimally displaced acute left 5th through 9th rib fractures without hemopneumothorax, no other injuries are appreciated Consultations: Treatments: Re-evaluations: Patient has pain from his rib fracture better controlled after a dose of Dilaudid however it certainly makes his expressive aphasia a bit more difficult to interpret. Discussed the elevated troponin with him. He notes that he has had 3 aortic valve replacements and over the last period of time(with his expressive aphasia I am unable to tell if that is years hours or days) he states that he has had more exertional dyspnea. He says he has not appointment with his cotton ball machine tender on Sunday. Discussion: Javier, 08/10/2023, 7:00 a.m. sign-out from Dr. Mccoy. Repeat troponin pending. 77-year-old male with history of expressive aphasia, AVR, chronic warfarin anticoagulation, INR today 2.7, had ground level fall, left-sided chest pain, left-sided rib fractures on imaging, no hemothorax/pneumothorax, no pulmonary contusion, abdominal imaging unremarkable. He has troponin 0.05 slight elevation. Repeat interval troponin pending. Pain medications given, improved left-sided chest pain. He reports his grandson is going to be graduating from high school soon, seems motivated to try to go home. He is aware we are waiting for interval troponin blood test results. His apparently is on 1 in the morning ferrous from [facility]. Await results interim troponin, in consultation with his for disposition planning. Assumed care Repeat troponin 0.053 about the same. Repeat EKG shows normal sinus rhythm 61 beats per minute, DC 240, QRS 196, QTC 551. Nonspecific intraventricular block. No significant change from prior comparison study 0150 earlier today. Findings discussed with patient and . He does not want to be admitted. He wants to try to go home. She recalls he has had elevated troponins in the past, does not seemed concern, does not want me to contact their cotton ball machine tender Dr. Saha in [place] with whom they were planning to meet this Sunday. They live on [facility], she feels he is too injured affected for long distance travel, I concur. We discussed pain medication with patient and , importance of deep breathing, prevention of pneumonia. Oxycodone tolerated in the past, they avoid tramadol due to possible serotonin interactions with his other chronic medications. Oral oxycodone dose given now. They will be attempting to board the early afternoon very to [facility], requested prescription go [email or web address]. Incentive spirometry discussed, apparatus dispensed with teaching. Requested spacer to be used with albuterol inhaler prescription to be sent to your prescription. Prescriptions for albuterol inhaler, and for further dose oxycodone sent to [facility]. Discharge home. Follow up with their local provider [facility] on Sunday advised. Consider phone consultation with their [facility] cotton ball machine tender on Sunday in place of in-person visit. Return precautions discussed. Improved, stable, home with . Critical Care Time <Santo Herrera MD - Last Filed: 08/10/23 13:14> Critical Care Time Critical Care Time: Yes Total Critical Care Time: 35 Attestation: The high probability of a clinically significant, sudden or life threatening deterioration of the [cardiopulmonary] system(s) required my full and direct attention, intervention and personal management. The aggregate critical care time was [35] minutes. This time is in addition to time spent performing reported procedures but includes the following: [x] Data Review and interpretation [x] Patient assessment and monitoring of vital signs [x] Documentation [x] Medication orders and management Discharge Plan Departure Patient Disposition: Home Clinical Impression: Multiple fractures of ribs, left side, initial encounter for closed fracture, Left-sided chest pain, History of aphasia Activity Restrictions/Additional Instructions: History of aphasia, ground level fall, left-sided chest pain, on trauma imaging found to have multiple left-sided rib fractures, no hemothorax, no pneumothorax, no contusion to the underlying lung on imaging, abdominal imaging structures looked okay. EKG without obvious ischemic changes. Blood tests showed slight elevation troponin, which apparently been elevated in the past when measured per , repeat troponin essentially the same value not markedly increasing. Pain control discussed, importance of deep breathing, to prevent lung collapse and complications of pneumonia. You were going to follow up with your [facility] old cotton ball machine tender on Sunday, but likely this is too complicated and difficult to do with rib fractures, for such long distance travel. Phone consultation advised in place in-person consultation. Encouraged to use incentive spirometer to keep lungs expanded. Pain medications as needed. Consider use of inhaler with a spacer to also help with keeping the lungs well inflated. Consider recheck examination with your regular provider on [facility] in clinic on Sunday. Return to this/nearest emergency department for any change worsening symptoms or any concerns prior Prescriptions: New oxycodone 5 mg tablet 5 mg PO QID PRN (Reason: pain) Qty: 20 0RF albuterol sulfate 90 mcg/actuation HFA aerosol inhaler 2 puff inhalation Q6H PRN (Reason: shortness of breath or wheezing) Qty: 8.5 0RF No Action sertraline 100 mg tablet 150 mg PO DAILY Qty: 135 1RF gabapentin 300 mg capsule 300 mg PO TID Qty: 270 1RF furosemide 40 mg tablet 40 mg PO DAILY Qty: 90 1RF pantoprazole 40 mg tablet,delayed release (DR/EC) 40 mg PO BID Qty: 180 1RF trazodone 50 mg tablet 50 mg PO BEDTIME PRN (Reason: insomnia) Qty: 90 1RF carvedilol 3.125 mg tablet 3.125 mg PO BID Qty: 180 1RF warfarin 2.5 mg tablet 2.5 mg PO DAILY Qty: 90 1RF atorvastatin 80 mg tablet 80 mg PO DAILY Qty: 90 1RF spironolactone 25 mg tablet 25 mg PO DAILY Qty: 90 1RF oxycodone 5 mg tablet 5 mg PO DAILY PRN (Reason: pain) Qty: 28 0RF Rx Instructions: Must last 28 days. Release date 08/01/23 ferrous gluconate 324 mg (37.5 mg iron) tablet 324 mg PO testosterone 50 mg/5 gram (1 %) gel 50 mg transdermal DAILY cholecalciferol (vitamin D3) 25 mcg (1,000 unit) tablet 25 mcg PO DAILY acetaminophen 500 mg tablet 1,000 mg PO BID PRN bupropion HCl [Wellbutrin XL] 150 mg tablet extended release 24 hr 150 mg PO QAM Qty: 90 3RF Referrals: Po Stratton MD [Primary Care Provider] - Stand Alone Forms: Patient Portal/API
--- NOTE | 2023-08-10 01:07 | DI.CT.S_ITS ---
PROCEDURE: CT CHEST ABD PEL W CON INDICATIONS: blunt trauma, ? left lower rib fx, splenic rupture TECHNIQUE: After the administration of intravenous contrast, 5 mm thick sections acquired from the lung apices to the symphysis. 2.5 mm thick coronal and sagittal reformats were acquired. Additional 7 mm thick coronal maximum intensity projection (MIP) reformats acquired through the lungs. Optional 10-minute delayed imaging may be performed from the kidneys to the bladder. For radiation dose reduction, the following was used: automated exposure control, adjustment of mA and/or kV according to patient size. COMPARISON: None. FINDINGS: Image quality: Diagnostic. CHEST: Lower Neck: No enlarged lymph nodes. Thyroid: No thyroid nodules which require sonographic evaluation. Axillae: No enlarged lymph nodes. Chest Wall: No subcutaneous gas. Cardiac pacemaker is seen with pulse generator in the right sternotomy wires are present. chest. Lungs and Pleura: No pulmonary contusions or lacerations. No acute airspace opacities. Mild subsegmental atelectasis in the lung bases. No pneumothorax or hemothorax. Mediastinum: No mediastinal hematomas. Heart size is enlarged. No pericardial effusion. Prominent aortic valve calcifications. Three-vessel coronary artery calcifications. Thoracic aorta and pulmonary arteries demonstrate normal size and enhancement. No mediastinal or hilar adenopathy. Esophagus is normal in caliber. No hiatal hernia. ABDOMEN: Liver: No lacerations. Gallbladder: Cholelithiasis without signs of acute cholecystitis. Biliary ducts: No biliary dilation. Pancreas: Homogenous enhancement. Spleen: Spleen is absent. Adrenal Glands: Symmetric enhancement. Kidneys and Ureters: Symmetric enhancement. No hydronephrosis. No solid mass. No complex renal cystic lesion which requires follow up. 2 mm non-obstructing calculus at the inferior pole of the left kidney. Stomach and Bowel: Normal colonic caliber, without significant wall thickening. Peritoneum: No abnormal intraperitoneal fluid. No free air. Ventral Wall: Fat containing periumbilical hernia. Abdominal Nodes: No retroperitoneal or mesenteric adenopathy by size criteria. Vessels: Aorta and inferior vena cava are normal in size. Aortic atherosclerotic calcifications. PELVIS: Pelvic Organs: Unremarkable. Bladder: Normal thickness. Pelvic Nodes: No enlarged lymph nodes. Miscellaneous: No inguinal hernias are seen. Bones: Minimally displaced fractures of the lateral left 5th through 9th ribs. Old healed left 10th and posterior 5th rib fractures. Healed right lateral lower rib fractures. Pelvic ring and hip joints appear intact. IMPRESSION: 1. Minimally displaced acute left 5th through 9th rib fractures. No pneumothorax or hemothorax. 2. Spleen is absent. No CT signs of acute traumatic solid organ injury. 3. Cardiomegaly. Moderate to severe coronary artery calcifications. Approved by: Jaciel Weller M.D. on 08/10/2023 at 2:10
[2023-08-10] MEDS: HYDROMORPHONE 0.5 MG INJ IV (01:23)
[2023-08-10 02:06] LABS: INR 2.7 (0.9-1.3); Prothrombin Time 30.8 SECONDS (9.4-12.5)
[2023-08-10 02:07] LABS: Basophils Absolute Auto 0 /uL (0-100); Basophils Percent Auto 0.3 % (0-2); Eosinophils Absolute Auto 0 /uL (0-450); Eosinophils Percent Auto 0.1 % (2-4); Hematocrit 31.5 % (41-53); Lymphocytes Absolute Auto 1000 /uL (1100-4500); Lymphocytes Percent Auto 9.1 % (25-40); Mean Corpuscular HGB Conc 35.1 % (30-36); Mean Corpuscular Hemoglobin 35.2 PG (26-34); Mean Corpuscular Volume 100.2 fL (80-100); Monocytes Absolute Auto 1100 /uL (0-900); Monocytes Percent Auto 9.2 % (3-14); Neutrophils Absolute Auto 9300 /uL (1500-7000); Neutrophils Percent Auto 81.3 % (50-75); Platelet Count 160 X10^3/uL (150-400); Red Blood Cell Count 3.14 X10^6/uL (4.5-5.9); Red Cell Distribution Width 13.8 % (11.6-14.8); White Blood Cell Count 11.5 X10^3/uL (4.5-11.0)
[2023-08-10 02:08] LABS: Add Manual Diff / Slide Review SLIDE REVIEW
[2023-08-10 02:11] LABS: Alanine Aminotransferase 21 IU/L (<50); Albumin 4.2 g/dL (3.5-5.0); Albumin Globulin Ratio 1.8 (1.0-2.8); Alkaline Phosphatase 90 U/L (38-126); Aspartate Aminotransferase 40 IU/L (17-59); BUN Creatinine Ratio 30.1 (6-22); Blood Urea Nitrogen 25 mg/dL (9-20); Calcium 8.8 mg/dL (8.4-10.2); Carbon Dioxide 25 mmol/L (22-32); Chloride 103 mmol/L (98-107); Estimated Glomerular Filt Rate > 60 mL/min (>60); Globulin 2.4 g/dL (1.7-4.1); Glucose 117 mg/dL (80-110); HEMOLYSIS < 15 (0-50); Lipase 98 U/L (23-300); Potassium 4.3 mmol/L (3.4-5.1); Sodium 133 mmol/L (137-145); Total Protein 6.6 g/dL (6.3-8.2)
[2023-08-10 02:22] LABS: Macrocytosis 1+; Poikilocytosis 1+; Troponin I 0.052 ng/mL (0.01-0.034)
[2023-08-10 02:23] LABS: Schistocytes 1+
[2023-08-10 03:18] LABS: Appearance Urine UA CLEAR; Bilirubin Urine UA NEGATIVE (NEGATIVE); Color Urine UA YELLOW; Glucose Urine UA NEGATIVE (Negative); Ketones Urine UA TRACE (NEGATIVE); Nitrite Urine UA NEGATIVE (Negative); Occult Blood Urine UA NEGATIVE (Negative); Protein Urine UA NEGATIVE (Negative); Urobilinogen Urine UA 0.2 E.U./dL (0.2)
[2023-08-10 03:20] LABS: Leukocyte Esterase Urine UA NEGATIVE (NEGATIVE)
[2023-08-10 03:33] LABS: RBC Urine 0-1/HPF (0-5/HPF); Urine Volume 10mL (spun); WBC Urine None Seen (0-5/HPF)
[2023-08-10 03:34] LABS: Amorphous Sediment Urine 1+; Bacteria Urine Few (2-10); Culture Indicated Urine Cult Not Indicated; Squamous Epithelial Cell Urine 0-1 /HPF (0-5/HPF)
--- NOTE | 2023-08-10 06:46 | PC.NURSE ---
Valdemar OJEDA spoke to the pts . Pts states [place] from [facility] and will be coming to the ER. Pts updated.
[2023-08-10 08:32] LABS: Troponin I 0.053 ng/mL (0.01-0.034)
--- NOTE | 2023-08-10 09:24 | PC.NURSE ---
Patient on ambulation trial walked well with an O2 of 94%, patient did drop to 88% when he wanted to walk faster. Upon returning to patient room, he regained an O2 of 94%
[2023-08-10] MEDS: OXYCODONE IR 5 MG TABLET PO (10:37)
--- NOTE | 2023-08-10 10:41 | PC.NURSE ---
New dressing applied to left elbow
== END 2023-08-10 10:45 | disposition home or self-care (01) ==
PROVIDERS: Emergency Medicine; Emergency Provider Emergency Medicine; PCP Family Medicine
DX: S22.42XA Multiple fractures of ribs, left side, initial encounter for closed fracture (principal); I69.320 Aphasia following cerebral infarction; I10 Essential (primary) hypertension; Z79.01 Long term (current) use of anticoagulants; Z95.2 Presence of prosthetic heart valve; Z95.0 Presence of cardiac pacemaker; Z87.891 Personal history of nicotine dependence; W18.30XA Fall on same level, unspecified, initial encounter
CPT/HCPCS: 36415; 71260; 74177; 80053; 81001; 83690; 84484; 85025; 85610; 86850; 86900; 86901; 93005; 93010; 96374; 99284; 99291; J1170; Q9967

== ENCOUNTER → 2023-08-22 10:36 | Outpatient (CLI) | payer MEDICARE, OTHER, SELFPAY ==
[2023-08-22 20:27] LABS: Reticulocyte Count, Percent 1.9 % (0.9-2.6)
[2023-08-22 20:34] LABS: Hematocrit 35.8 % (41-53); Hemoglobin 12.3 g/dL (13.5-17.5); Mean Corpuscular HGB Conc 34.5 % (30-36); Mean Corpuscular Hemoglobin 35.3 PG (26-34); Mean Corpuscular Volume 102.3 fL (80-100); Platelet Count 221 X10^3/uL (150-400); Red Cell Distribution Width 14.7 % (11.6-14.8); White Blood Cell Count 5.7 X10^3/uL (4.5-11.0)
[2023-08-22 20:37] LABS: Add Manual Diff / Slide Review YES
[2023-08-22 20:41] LABS: BUN Creatinine Ratio 23.4 (6-22); Blood Urea Nitrogen 22 mg/dL (9-20); Calcium 8.9 mg/dL (8.4-10.2); Carbon Dioxide 29 mmol/L (22-32); Chloride 105 mmol/L (98-107); Estimated Glomerular Filt Rate > 60 mL/min (>60); Glucose 93 mg/dL (80-110); HEMOLYSIS 19 (0-50); Magnesium 2.3 mg/dL (1.6-2.3); Potassium 4.4 mmol/L (3.4-5.1); Sodium 139 mmol/L (137-145)
[2023-08-22 21:05] LABS: TSH w/ Reflex to FT4 1.15 uIU/mL (0.47-4.68)
[2023-08-22 21:14] LABS: Neutrophils Absolute Manual 2736 /uL (3000-5900); Schistocytes 1+; Total Cells Counted 100
== END ==
PROVIDERS: PCP Family Medicine; Visit Provider Specialist
DX: I50.40 Unspecified combined systolic (congestive) and diastolic (congestive) heart failure (principal); I50.42 Chronic combined systolic (congestive) and diastolic (congestive) heart failure; D64.9 Anemia, unspecified; Z79.890 Hormone replacement therapy; F11.90 Opioid use, unspecified, uncomplicated; I63.519 Cerebral infarction due to unspecified occlusion or stenosis of unspecified middle cerebral artery; I25.10 Atherosclerotic heart disease of native coronary artery without angina pectoris
CPT/HCPCS: 80048; 83735; 84443; 85007; 85025; 85045

== ENCOUNTER → 2024-01-03 11:12 | Outpatient (CLI) | payer MEDICARE, OTHER, SELFPAY ==
[2024-01-03 19:43] LABS: Add Manual Diff / Slide Review NO; Basophils Absolute Auto 100 /uL (0-100); Basophils Percent Auto 0.8 % (0-2); Eosinophils Absolute Auto 100 /uL (0-450); Hematocrit 34.9 % (41-53); Lymphocytes Absolute Auto 1100 /uL (1100-4500); Lymphocytes Percent Auto 18.7 % (25-40); Mean Corpuscular HGB Conc 34.5 % (30-36); Mean Corpuscular Hemoglobin 35.5 PG (26-34); Mean Corpuscular Volume 103.1 fL (80-100); Monocytes Absolute Auto 700 /uL (0-900); Monocytes Percent Auto 12.1 % (3-14); Neutrophils Absolute Auto 4100 /uL (1500-7000); Neutrophils Percent Auto 66.4 % (50-75); Platelet Count 177 X10^3/uL (150-400); Red Blood Cell Count 3.39 X10^6/uL (4.5-5.9); Red Cell Distribution Width 14.6 % (11.6-14.8); White Blood Cell Count 6.1 X10^3/uL (4.5-11.0)
== END ==
PROVIDERS: PCP Family Medicine; Visit Provider Family Medicine
DX: D64.9 Anemia, unspecified (principal); G62.89 Other specified polyneuropathies; Z95.2 Presence of prosthetic heart valve; R74.01 Elevation of levels of liver transaminase levels; E78.2 Mixed hyperlipidemia; R13.12 Dysphagia, oropharyngeal phase
CPT/HCPCS: 85025

== ENCOUNTER → 2024-01-07 08:40 | Outpatient (CLI) | payer MEDICARE, OTHER, SELFPAY ==
[2024-01-07 19:08] LABS: HEMOLYSIS < 15 (0-50); Iron 114 ug/dL (49-181)
[2024-01-07 19:13] LABS: Alanine Aminotransferase 24 IU/L (<50); Albumin 4.2 g/dL (3.5-5.0); Albumin Globulin Ratio 1.4 (1.0-2.8); Alkaline Phosphatase 98 U/L (38-126); Aspartate Aminotransferase 43 IU/L (17-59); Bilirubin Total 1.2 mg/dL (0.2-1.3); Bilirubin Unconjugated 0.9 mg/dL (0.0-1.1); Cholesterol 160 mg/dL (140-199); HDL Cholesterol 98 mg/dL (40-60); HEMOLYSIS < 15 (0-50); LDL Cholesterol Calculated 47 mg/dL (<100); Total Protein 7.2 g/dL (6.3-8.2); Triglycerides 76 mg/dL (35-150)
[2024-01-07 19:23] LABS: Percent Iron Saturation 37 % (20-50); Total Iron Binding Capacity 310 ug/dL (261-462); Transferrin 237 mg/dL (206-381)
[2024-01-07 19:27] LABS: Vitamin D 25 Hydroxy (D3) 42.3 ng/mL (30.0-100.0)
[2024-01-07 19:58] LABS: Vitamin B12 > 1000 pg/mL (239-931)
== END ==
PROVIDERS: PCP Family Medicine; Referring Provider Family Medicine; Visit Provider Family Medicine
DX: R74.8 Abnormal levels of other serum enzymes (principal); E55.9 Vitamin D deficiency, unspecified; R29.6 Repeated falls; R29.818 Other symptoms and signs involving the nervous system; R29.898 Other symptoms and signs involving the musculoskeletal system; D64.9 Anemia, unspecified; E78.2 Mixed hyperlipidemia; G62.89 Other specified polyneuropathies; I73.9 Peripheral vascular disease, unspecified; Z95.2 Presence of prosthetic heart valve; R13.12 Dysphagia, oropharyngeal phase
CPT/HCPCS: 80061; 80076; 82306; 82607; 83540; 83550; 85045

== ENCOUNTER 2024-02-26 14:05 | Emergency (ER) | payer MEDICARE, OTHER, SELFPAY ==
[2024-02-26] VITALS (7 sets, daily range): BP systolic 102–136; BP diastolic 53–60; PULSE 60–85; RESP 22; TEMP 36.4; O2SAT 95–97; BMI 28.8
--- NOTE | 2024-02-26 15:50 | PC.NURSE ---
Pt spouse states that only change in pt status is weakness in right leg and low right back pain.
--- NOTE | 2024-02-26 16:50 | ED_ITS ---
HPI - Neuro Symptoms/Deficit General Chief Complaint: Neuro Symptoms/Deficit Stated Complaint: lower back px, unable to stand or walk Time Seen by Provider: 02/26/24 16:50 Source: patient Mode of arrival: Wheelchair History of Present Illness HPI Narrative: 78-year-old male with history of stroke and resultant aphasia, had right lower back and buttock pain recent days without obvious new fall or injury, right buttock and leg pain, unable to go up or downstairs due to right leg weakness. Weakness to his right upper extremity, nor change in his baseline aphasia. No change in medications. No fevers or chills. No recent cough or illness symptoms recalled. On Anticoagulants: Yes (Coumadin) Related Data Home Medications Medication Instructions Recorded Confirmed acetaminophen 500 mg tablet 1,000 mg PO BID PRN 06/22/20 01/07/24 cholecalciferol (vitamin D3) 25 25 mcg PO DAILY 06/22/20 01/07/24 mcg (1,000 unit) tablet testosterone 50 mg/5 gram (1 %) 50 mg transdermal DAILY 06/22/20 01/07/24 transdermal gel ferrous gluconate 324 mg (37.5 mg 324 mg PO anemia 07/27/22 01/07/24 iron) tablet sacubitril 24 mg-valsartan 26 mg 0.5 tab PO BID Heart failure 11/02/23 01/07/24 tablet (Entresto) Previous Rx's Medication Instructions Recorded atorvastatin 80 mg tablet 80 mg PO DAILY #90 tabs 06/25/23 bupropion HCl 150 mg 24 hr tablet, 150 mg PO QAM #90 tabs 06/29/23 extended release (Wellbutrin XL) albuterol sulfate 90 mcg/actuation 2 puff inhalation Q6H PRN 08/10/23 aerosol inhaler shortness of breath or wheezing #8.5 grams sertraline 100 mg tablet 150 mg (1.5 x 100 mg) PO DAILY 09/03/23 #135 tabs carvedilol 3.125 mg tablet 3.125 mg PO BID #180 tabs 10/08/23 furosemide 40 mg tablet 40 mg PO DAILY #90 tabs 10/08/23 gabapentin 300 mg capsule 300 mg PO TID #270 caps 10/08/23 pantoprazole 40 mg tablet,delayed 40 mg PO BID #180 tabs 10/08/23 release warfarin 2.5 mg tablet 2.5 mg PO DAILY #90 tabs 12/19/23 trazodone 50 mg tablet 50 mg PO BEDTIME PRN insomnia #90 01/11/24 tabs oxycodone 5 mg tablet 5 mg PO DAILY PRN pain #28 tabs 01/15/24 methocarbamol 500 mg tablet 500 mg PO TID 7 days #21 tabs 02/26/24 prednisone 20 mg tablet 40 mg (2 x 20 mg) PO DAILY 5 days 02/26/24 #10 tabs Allergies Allergy/AdvReac Type Severity Reaction Status Date / Time NSAIDS (Non-Steroidal AdvReac Severe ON COUMADIN Verified 01/10/24 10:51 Anti-Inflamma Review of Systems Hematologic/Lymphatic On Anticoagulants: Yes (Coumadin) Patient History Medical History (Updated 02/26/24 @ 17:23 by Santo Herrera MD) Cough Surgical History (Updated 11/29/22 @ 07:39 by Po Stratton MD) History of endoscopic gastrointestinal surgery History of orthopedic surgery Status post Mohs surgery History of cataract extraction S/P AVR Social History Smoking Status: Former smoker Smoking Status: Former smoker alcohol intake frequency: holidays/special occasions only Alcohol type: wine Exam Narrative Exam Narrative: GENERAL: Well-developed patient, in mild distress. HEAD: Atraumatic. Normocephalic. EYES: Pupils equal round and reactive. Extraocular motions intact. No scleral icterus. No injection or drainage. ENT: Nose without bleeding, purulent drainage. Throat without erythema, tonsillar hypertrophy or exudate. Airway patent. NECK: Trachea midline. Non tender CARDIOVASCULAR: Regular rate and rhythm without murmurs, gallops, or rubs. RESPIRATORY: Clear to auscultation. Breath sounds equal bilaterally. No wheezes, rales, or rhonchi. GASTROINTESTINAL: Abdomen soft, non-tender, nondistended. EXTREMITIES: No edema or joint tenderness. Right sciatic groove area tenderness. No tenderness to right greater trochanteric region, no groin or hip anterior tenderness. BACK: Nontender without deformity or crepitance. No flank tenderness. NEURO: AOx3. Motor functions grossly nonfocal. Straight leg raise 60? right side and left side SKIN: No rash or erythema of visible areas Initial Vital Signs Initial Vital Signs: Vital Signs Temperature 97.5 F L 02/26/24 14:12 Pulse Rate 85 02/26/24 14:12 Respiratory Rate 22 02/26/24 14:12 Blood Pressure 136/60 02/26/24 14:12 Pulse Oximetry 97 02/26/24 14:12 Oxygen Delivery Method Room Air 02/26/24 14:12 Course Orders Ordered: ED Orders 02/26/24 17:15 CT lumbar spine wo con Stat Methocarbamol (Methocarbamol 500 Mg Tablet) 500 mg PO TID Stop: 02/27/24 23:59 Ondansetron HCl (Ondansetron 4 Mg/2 Ml Inj) 4 mg IV NOW PRN PRN Reason: Nausea And Vomiting Ondansetron HCl (Ondansetron 4 Mg Odt) 4 mg SL NOW PRN PRN Reason: Nausea And Vomiting Discontinued Medications Hydromorphone HCl (Hydromorphone 1 Mg Inj) 1 mg IM NOW ONE Stop: 02/26/24 17:15 Last Admin: 02/26/24 17:20 Dose: 1 mg Documented By: Methocarbamol (Methocarbamol 500 Mg Tablet) 500 mg PO NOW ONE Stop: 02/26/24 17:15 Last Admin: 02/26/24 17:20 Dose: 500 mg Documented By: Methocarbamol (Methocarbamol 500 Mg Tablet) 750 mg PO NOW ONE Stop: 02/26/24 18:23 Last Admin: 02/26/24 18:26 Dose: Not Given Documented By: Prednisone (Prednisone 20 Mg Tablet) 40 mg PO NOW ONE Stop: 02/26/24 17:17 Last Admin: 02/26/24 17:20 Dose: 40 mg Documented By: Vital Signs Vital signs: Vital Signs - 8 hr 02/26/24 14:12 02/26/24 15:28 02/26/24 15:30 Temperature 97.5 F L Pulse Rate 85 61 Respiratory Rate 22 Blood Pressure 136/60 106/53 L Pulse Oximetry 97 95 Oxygen Delivery Method Room Air 02/26/24 15:30 02/26/24 16:05 02/26/24 16:11 Temperature Pulse Rate 60 71 Respiratory Rate Blood Pressure 133/60 Pulse Oximetry 96 97 Oxygen Delivery Method Room Air 02/26/24 16:11 02/26/24 16:30 02/26/24 16:31 Temperature Pulse Rate 73 63 Respiratory Rate Blood Pressure 102/53 L Pulse Oximetry 97 95 Oxygen Delivery Method Room Air 02/26/24 16:31 Temperature Pulse Rate 63 Respiratory Rate Blood Pressure Pulse Oximetry 96 Oxygen Delivery Method Room Air MDM - Neuro Symptoms/Deficit Lab Data Labs: Urine Dip Bedside Urine Glucose Negative Bedside Urine Bilirubin - Negative Bedside Urine Ketone - Negative Urine Specific [place] 1.015 Bedside Urine Occult Blood - Negative Bedside Urine pH 6.0 Bedside Urine Protein - Negative Bedside Urine Urobilinogen - Negative Bedside Urine Nitrite - Negative Bedside Urine Leukocytes - Negative Esterase MDM Narrative Medical decision making narrative: 78-year-old male with history of aphasia from remote stroke, has right leg weakness, right buttock and low back pain, unable to go up stairs today, here for evaluation with his . They feel that this is not likely a stroke, at worried more of a low back/buttock problem, possible sciatica. No fall or injuries in the last few days recalled. History of fall a few months ago and rib fractures known, from which she had recovered. Right buttock area tenderness, straight leg raise reasonable. No midline or paraspinal lumbar tenderness. They would like imaging. CT lumbar spine noncontrast study ordered. IM Dilaudid, oral prednisone, oral Robaxin CT lumbar spine shows multilevel degenerative arthritis changes, no acute changes, no mention of severe spinous changes, no retropulsion, no fractures. See radiology report They would like to try to make the [address] back to [facility], has chronic oxycodone pain medication. We will send prescription for Robaxin and for prednisone pulse to his pharmacy [facility] on [facility], which likely can be filled 02/28/2024. Continue his [id number] oxycodone advised for now. Discharged home with his . Discharge Plan Departure Patient Disposition: Home Clinical Impression: Sciatica of right side Activity Restrictions/Additional Instructions: Right low back and sciatic groove area pain, with some tenderness to the right sciatic groove. Some weakness to the right leg unable to go up stairs. No recent fall, prior rib fractures recovered from months ago. History of stroke, no upper extremity weakness. CT lumbar spine showed multilevel degenerative arthritic changes but no severe spinal stenosis, no acute fractures or other acute changes, per Radiology reading. Copy of the report provided with review. Oral muscle relaxant and prednisone steroid given, injection of Dilaudid given. Continue taking your home oxycodone pain medication. Consider prednisone oral steroid course for the next few days that might help with sciatica symptoms. Consider muscle relaxant Robaxin that might help with symptoms next few days. Recheck symptoms with your regular doctor after holiday. Return to this/nearest emergency department for any change worsening symptoms or any conc erns prior Prescriptions: New methocarbamol 500 mg tablet 500 mg PO TID 7 Days Qty: 21 0RF prednisone 20 mg tablet 40 mg PO DAILY 5 Days Qty: 10 0RF No Action atorvastatin 80 mg tablet 80 mg PO DAILY Qty: 90 1RF sertraline 100 mg tablet 150 mg PO DAILY Qty: 135 3RF carvedilol 3.125 mg tablet 3.125 mg PO BID Qty: 180 1RF furosemide 40 mg tablet 40 mg PO DAILY Qty: 90 1RF pantoprazole 40 mg tablet,delayed release (DR/EC) 40 mg PO BID Qty: 180 1RF gabapentin 300 mg capsule 300 mg PO TID Qty: 270 1RF warfarin 2.5 mg tablet 2.5 mg PO DAILY Qty: 90 1RF trazodone 50 mg tablet 50 mg PO BEDTIME PRN (Reason: insomnia) Qty: 90 1RF oxycodone 5 mg tablet 5 mg PO DAILY PRN (Reason: pain) Qty: 28 0RF Rx Instructions: Must last 28 days. Release date 01/16/24 albuterol sulfate 90 mcg/actuation HFA aerosol inhaler 2 puff inhalation Q6H PRN (Reason: shortness of breath or wheezing) Qty: 8.5 0RF ferrous gluconate 324 mg (37.5 mg iron) tablet 324 mg PO Entresto 24-26 mg tablet 0.5 tab PO BID Patient Comments: Taking half pill twice a day testosterone 50 mg/5 gram (1 %) gel 50 mg transdermal DAILY cholecalciferol (vitamin D3) 25 mcg (1,000 unit) tablet 25 mcg PO DAILY acetaminophen 500 mg tablet 1,000 mg PO BID PRN bupropion HCl [Wellbutrin XL] 150 mg tablet extended release 24 hr 150 mg PO QAM Qty: 90 3RF Referrals: Po Stratton MD [Primary Care Provider] - Stand Alone Forms: Patient Portal/API/Survey
--- NOTE | 2024-02-26 17:15 | DI.CT.S_ITS ---
PROCEDURE: CT LUMBAR SPINE WO CON INDICATIONS: Right sciatica, low back pain TECHNIQUE: Noncontrast 3 mm thick sections acquired from the T12 level to the sacrum. Sagittal and coronal reformats were constructed. For radiation dose reduction, the following was used: automated exposure control. COMPARISON: [facility], MR, MR LUMBAR SPINE WITHOUT CONTRAST, 11/19/2023, 12:01. FINDINGS: Image quality: Excellent. Bones: Mild levoconvex curvature of the lumbar spine. Mild grade 1 retrolisthesis again seen at L1-2 and L5-S1. No acute vertebral body compression fractures. No suspicious lytic or blastic bony lesions. No pars defects. Mild degenerative changes are seen in the sacroiliac joints. T12-L1: No significant spinal canal stenosis or neural foraminal narrowing. L1-L2: Mild disc bulging resulting in mild narrowing of the bilateral neural foramina without significant spinal canal stenosis. Previously seen paracentral disc protrusion better demonstrated on MRI. L2-L3: Mild circumferential disc bulging and mild bilateral facet hypertrophy, which result in mild narrowing of the neural foramina and mild narrowing of the spinal canal. L3-L4: Circumferential disc bulging with moderate bilateral facet hypertrophy and buckling of the ligamentum flavum. Findings result in mild narrowing of the spinal canal as well as [id number] bilateral neural foraminal narrowing. L4-L5: Circumferential disc bulging as well as bilateral facet hypertrophy and buckling of the ligamentum flavum. Findings result in mild narrowing of the spinal canal and moderate bilateral neural foraminal narrowing. L5-S1: Circumferential disc bulging and bilateral facet hypertrophy, which result in [id number] narrowing of the neural foramina without significant spinal canal stenosis. Soft tissues: No retroperitoneal masses or hematomas. Visualized aorta is normal in caliber. Moderate aortic atherosclerotic calcifications. IMPRESSION: 1. No acute osseous abnormality. 2. Multilevel degenerative disc disease and facet hypertrophy as described in detail in the body of the report, not significantly changed when compared to the MRI from 11/19/2023. 3. No high-grade spinal canal stenosis or high-grade neural foraminal narrowing. Approved by: Jaciel Weller M.D. on 02/26/2024 at 18:03
[2024-02-26] MEDS: HYDROMORPHONE 1 MG INJ IM (17:20)
[2024-02-26] MEDS: methocarbamoL 500 MG TABLET PO (17:20)
[2024-02-26] MEDS: predniSONE 20 MG TABLET 40 MG PO (17:20)
--- NOTE | 2024-02-26 20:07 | PC.NURSE ---
Prepack of Methocarbamol given to pt. Unable to scan no barcode. #6 tabs of Methocarbamol 500mg with directions TID.
== END 2024-02-26 18:50 | disposition home or self-care (01) ==
PROVIDERS: Emergency Provider Emergency Medicine; PCP Family Medicine
DX: M54.41 Lumbago with sciatica, right side (principal); I69.320 Aphasia following cerebral infarction; Z87.891 Personal history of nicotine dependence
CPT/HCPCS: 72131; 81003; 96372; 99284; J1171

== ENCOUNTER → 2024-06-19 09:58 | Outpatient (CLI) | payer MEDICARE, OTHER, SELFPAY ==
[2024-06-19 19:37] LABS: BUN Creatinine Ratio 26.9 (6-22); Blood Urea Nitrogen 25 mg/dL (9-20); Calcium 9.4 mg/dL (8.4-10.2); Carbon Dioxide 30 mmol/L (22-32); Chloride 102 mmol/L (98-107); Cholesterol 172 mg/dL (140-199); Estimated Glomerular Filt Rate > 60 mL/min (>60); Glucose 96 mg/dL (80-110); HDL Cholesterol 107 mg/dL (40-60); HEMOLYSIS < 15 (0-50); LDL Cholesterol Calculated 51 mg/dL (<100); Potassium 4.6 mmol/L (3.4-5.1); Sodium 139 mmol/L (137-145); Triglycerides 72 mg/dL (35-150)
[2024-06-19 19:46] LABS: Basophils Absolute Auto 100 /uL (0-100); Basophils Percent Auto 0.9 % (0-2); Eosinophils Absolute Auto 100 /uL (0-450); Eosinophils Percent Auto 1.5 % (2-4); Lymphocytes Absolute Auto 1300 /uL (1100-4500); Lymphocytes Percent Auto 20.5 % (25-40); Mean Corpuscular HGB Conc 35.2 % (30-36); Mean Corpuscular Hemoglobin 35.9 PG (26-34); Mean Corpuscular Volume 101.9 fL (80-100); Monocytes Absolute Auto 1000 /uL (0-900); Monocytes Percent Auto 15.4 % (3-14); Neutrophils Absolute Auto 3900 /uL (1500-7000); Neutrophils Percent Auto 61.7 % (50-75); Platelet Count 169 X10^3/uL (150-400); Red Blood Cell Count 3.34 X10^6/uL (4.5-5.9); Red Cell Distribution Width 14.8 % (11.6-14.8); White Blood Cell Count 6.4 X10^3/uL (4.5-11.0)
[2024-06-19 20:10] LABS: Add Manual Diff / Slide Review SLIDE REVIEW
[2024-06-19 20:12] LABS: Prostate Specific Antigen Scrn 0.196 ng/mL (0.1-4.0)
[2024-06-19 20:35] LABS: Anisocytosis 2+; Macrocytosis 2+; Platelet Estimate Adequate on smear; Poikilocytosis 2+; Schistocytes 1+
[2024-06-19 20:36] LABS: Spherocytes 1+
[2024-07-05 07:11] LABS: Percent Free Testosterone 3.24 % (1.50-4.20); Testosterone Free 9.13 ng/dL (5.00-21.00); Testosterone Total 281.8 ng/dL (264.0-916.0)
== END ==
PROVIDERS: PCP Family Medicine; Referring Provider Family Medicine; Visit Provider Family Medicine
DX: I11.0 Hypertensive heart disease with heart failure (principal); D64.9 Anemia, unspecified; I63.519 Cerebral infarction due to unspecified occlusion or stenosis of unspecified middle cerebral artery; Z12.5 Encounter for screening for malignant neoplasm of prostate; I50.42 Chronic combined systolic (congestive) and diastolic (congestive) heart failure; I25.10 Atherosclerotic heart disease of native coronary artery without angina pectoris; E29.1 Testicular hypofunction; E78.2 Mixed hyperlipidemia
CPT/HCPCS: 80048; 80061; 84402; 84403; 85025; G0103

== ENCOUNTER → 2024-10-08 13:58 | Outpatient (CLI) | payer MEDICARE, OTHER, SELFPAY | PROVIDERS: PCP Family Medicine; Visit Provider Family Medicine | DX: R35.0 Frequency of micturition (principal) | CPT/HCPCS: 87077; 87086 ==

== ENCOUNTER → 2024-10-14 09:49 | Outpatient (CLI) | payer MEDICARE, OTHER, SELFPAY ==
[2024-10-14 19:40] LABS: Hematocrit 34.4 % (41-53); Hemoglobin 12.0 g/dL (13.5-17.5); Lymphocytes Absolute Auto 1700 /uL (1100-4500); Mean Corpuscular HGB Conc 35.0 % (30-36); Mean Corpuscular Hemoglobin 36.5 PG (26-34); Mean Corpuscular Volume 104.1 fL (80-100); Platelet Count 185 X10^3/uL (150-400)
[2024-10-14 19:43] LABS: Add Manual Diff / Slide Review SLIDE REVIEW
[2024-10-14 19:51] LABS: Alanine Aminotransferase 27 IU/L (<50); Albumin 4.5 g/dL (3.5-5.0); Albumin Globulin Ratio 1.6 (1.0-2.8); Alkaline Phosphatase 123 U/L (38-126); Blood Urea Nitrogen 27 mg/dL (9-20); Calcium 9.6 mg/dL (8.4-10.2); Carbon Dioxide 27 mmol/L (22-32); Chloride 104 mmol/L (98-107); Cholesterol 182 mg/dL (140-199); Estimated Glomerular Filt Rate > 60 mL/min (>60); Globulin 2.8 g/dL (1.7-4.1); Glucose 95 mg/dL (70-99); HEMOLYSIS < 15 (0-50); Potassium 4.5 mmol/L (3.4-5.1); Sodium 139 mmol/L (137-145); Total Protein 7.3 g/dL (6.3-8.2); Triglycerides 88 mg/dL (35-150)
[2024-10-14 19:58] LABS: NT-proBNP (BNP-Adult 18+) 3060 pg/mL (<450)
[2024-10-14 20:10] LABS: Acanthocytes 2+; Anisocytosis 3+; Schistocytes 3+
[2024-10-14 20:11] LABS: Macrocytosis 2+; Microcytosis 1+; Tear Drop Cells 1+
[2024-10-14 20:12] LABS: Spherocytes 1+
[2024-10-14 20:13] LABS: Rouleaux 1+
[2024-10-14 20:22] LABS: HDL Cholesterol 113 mg/dL (40-60)
[2024-10-14 20:23] LABS: Thyroid Stimulating Hormone 1.89 uIU/mL (0.47-4.68)
[2024-10-14 20:41] LABS: Vitamin B12 980 pg/mL (239-931)
== END ==
PROVIDERS: PCP Family Medicine; Visit Provider Family Medicine
DX: D64.9 Anemia, unspecified (principal); R06.02 Shortness of breath; I63.519 Cerebral infarction due to unspecified occlusion or stenosis of unspecified middle cerebral artery; I25.10 Atherosclerotic heart disease of native coronary artery without angina pectoris; F33.1 Major depressive disorder, recurrent, moderate; R29.6 Repeated falls; I10 Essential (primary) hypertension; E78.2 Mixed hyperlipidemia; I48.0 Paroxysmal atrial fibrillation; E55.9 Vitamin D deficiency, unspecified; Z79.890 Hormone replacement therapy
CPT/HCPCS: 80053; 80061; 82607; 83880; 84402; 84403; 84443; 85025